=== PATIENT | male | born 1955 | race Caucasian/White ===

== ENCOUNTER 2023-11-06 10:13 | Emergency (ER) | payer BC, SELFPAY ==
[2023-11-06 10:20] VITALS: BP 186/96; PULSE 76; RESP 16; TEMP 36.6; O2SAT 99; BMI 25.5
--- NOTE | 2023-11-06 10:24 | DI.RAD.S_ITS ---
PROCEDURE: XR FINGER LT MIN 2V INDICATIONS: table saw laceration TECHNIQUE: AP hand, 2 views of the 1st finger(s) acquired. COMPARISON: None. FINDINGS: Bones: Cortical irregularity involving 1st distal phalangeal tuft is noted. No other fracture or dislocation.. No suspicious bony lesions. Soft tissues: Soft tissue laceration over volar aspect of 1st distal phalanx is noted with small amount of subcutaneous emphysema. No radiopaque foreign body is seen. No suspicious soft tissue calcifications. IMPRESSION: Laceration over volar aspect of left thumb. No radiopaque foreign bodies. Suggestion of subtle nondisplaced or minimally displaced fracture involving 1st distal phalangeal tuft. Dictated by: Steffen Hughes M.D. on 11/06/2023 at 11:08 Approved by: Steffen Hughes M.D. on 11/06/2023 at 11:11
[2023-11-06] MEDS: LIDOCAINE 1% (PF) 5 ML 10 ML INJ (12:18)
[2023-11-06] MEDS: TET,DIPH,PERTUSS(ACELL),VAC/PF 0.5 ML SYRINGE IM (13:52)
--- NOTE | 2023-11-06 14:34 | ED.WOUNDLAC ---
HPI - Wound/Laceration <Ruben Dewey PA-C - Last Filed: 11/06/23 14:41> General Chief Complaint: Wound/Laceration Stated Complaint: cut thumb left hand Time Seen by Provider: 11/06/23 11:31 Source: patient Mode of arrival: Ambulatory History of Present Illness HPI narrative: 68-year-old male with past medical history hypertension presents to the ED status post a finger injury sustained just prior to arrival. Patient states that he was working on a home improvement project with a table saw when he accidentally injured his left thumb. Patient denies numbness, tingling, weakness. Bleeding is controlled with pressure. Patient endorses full range of motion. Tetanus status unknown. Related Data Previous Rx's Medication Instructions Recorded cephalexin 500 mg capsule 500 mg PO QID 5 days #20 caps 11/06/23 lisinopril 10 1 tab PO DAILY 21 days #21 tabs 11/06/23 mg-hydrochlorothiazide 12.5 mg tablet lisinopril 5 mg tablet 5 mg PO DAILY 3 weeks #21 tabs 11/06/23 Allergies Allergy/AdvReac Type Severity Reaction Status Date / Time No Known Drug Allergies Allergy Verified 11/06/23 10:23 Review of Systems <Ruben Dewey PA-C - Last Filed: 11/06/23 14:41> Constitutional Constitutional: Denies chills, Denies fatigue, Denies fever(s), Denies frequent falls, Denies lethargy and Denies weakness Eyes Eyes: Denies change in vision, Denies eye discharge, Denies irritation and Denies loss of vision ENT Ears, Nose, Mouth, and Throat: Denies change in voice, Denies dizziness, Denies neck pain, Denies sore throat and Denies throat swelling Cardiovascular Cardiovascular: Denies chest pain, Denies irregular heart rhythm, Denies lightheadedness, Denies palpitations, Denies dyspnea, Denies dyspnea on exertion and Denies orthopnea Respiratory Respiratory: Denies cough, Denies dyspnea, Denies dyspnea on exertion and Denies wheezing Gastrointestinal Gastrointestinal: Denies abdominal pain, Denies change in bowel habits, Denies diarrhea, Denies nausea and Denies vomiting Musculoskeletal Musculoskeletal: Denies neck pain and Denies numbness Integumentary/Breasts Skin/Breast: Denies pruritus, Denies erythema, Denies rash and Reports wounds Neurologic Neurologic: Denies behavioral changes, Denies confusion, Denies dizziness, Denies frequent falls, Denies loss of vision, Denies numbness and Denies weakness Psychiatric Psychiatric: Denies anxiety, Denies behavioral changes, Denies confusion, Denies depression, Denies homicidal ideation and Denies suicidal ideation Endocrine Endocrine: Denies fatigue, Denies flushing and Denies palpitations Hematologic/Lymphatic Hematologic/Lymphatic: Denies easy bruising Allergic/Immunologic Allergic/Immunologic: Denies urticaria, Denies throat swelling and Denies wheezing Patient History <Ruben Dewey PA-C - Last Filed: 11/06/23 14:41> Social History Smoking Status: Never smoker Smoking Status: Never smoker Substance Use Type: does not use Exam <Ruben Dewey PA-C - Last Filed: 11/06/23 14:41> Narrative Exam Narrative: Const General:?cooperative, healthy appearing and comfortable [facility] Head:?normal to inspection Ears:?hearing grossly normal bilaterally Nose:?external nose normal Face and sinus:?normal facial exam and sinuses nontender Mouth:?oral mucosae normal Throat:?posterior oropharynx normal Eyes General:?appearance normal, both eyes and all related structures Neck Neck:?normal visual inspection and no lymphadenopathy noted Resp Effort & Inspection:?normal respiratory effort Auscultation:?clear to auscultation bilaterally Cardio Rate:?regular rate Rhythm:?regular rhythm Integumentary There is a 2 cm laceration to the volar aspect of the left thumb. Bleeding is controlled with pressure. There is full range of motion. Strength and sensation is intact. Patient is neurovascularly intact. Neuro General:?patient alert, patient awake and patient oriented x3 Initial Vital Signs Initial Vital Signs: Vital Signs Temperature 98 F 11/06/23 10:20 Pulse Rate 76 11/06/23 10:20 Respiratory Rate 16 11/06/23 10:20 Blood Pressure 186/96 H 11/06/23 10:20 Pulse Oximetry 99 11/06/23 10:20 Oxygen Delivery Method Room Air 11/06/23 10:20 <Tonie Alejo MD - Last Filed: 11/06/23 15:49> Initial Vital Signs Initial Vital Signs: Vital Signs Temperature 98 F 11/06/23 10:20 Pulse Rate 76 11/06/23 10:20 Respiratory Rate 16 11/06/23 10:20 Blood Pressure 186/96 H 11/06/23 10:20 Pulse Oximetry 99 11/06/23 10:20 Oxygen Delivery Method Room Air 11/06/23 10:20 Procedures <Ruben Dewey PA-C - Last Filed: 11/06/23 14:41> Laceration Repair Laceration 1: Site: hand Side (If applicable): left Size (cm): 2 Description: irregular Depth: simple, single layer Local Anesthetic: lidocaine 1% Amount of anesthesia used (mL): 4 Pre-repair: wound explored, irrigated extensively and deep structures intact Skin layer closed with: nylon Skin layer suture size: 5-0 Number of sutures: 5 Technique: simple, interrupted Course <Ruben Dewey PA-C - Last Filed: 11/06/23 14:41> Orders Ordered: ED Orders 11/06/23 10:24 XR finger LT min 2V Stat Discontinued Medications Diphtheria/Tetanus/Acell Pertussis (Tet,Diph,Pertuss(Acell),Vac/Pf 0.5 Ml Syringe) 0.5 ml IM .ONCE ONE Stop: 11/06/23 13:13 Last Admin: 11/06/23 13:52 Dose: 0.5 ml Documented By: JAME Lidocaine HCl (Lidocaine 1% (Pf) 5 Ml) 10 ml INJ NOW ONE Stop: 11/06/23 12:08 Last Admin: 11/06/23 12:18 Dose: 10 ml Documented By: MOHIT Vital Signs Vital signs: Vital Signs - 8 hr 11/06/23 10:20 11/06/23 14:40 Temperature 98 F Pulse Rate 76 60 Respiratory Rate 16 18 Blood Pressure 186/96 H 157/94 H Pulse Oximetry 99 100 Oxygen Delivery Method Room Air Room Air <Tonie Alejo MD - Last Filed: 11/06/23 15:49> Orders Ordered: ED Orders 11/06/23 10:24 XR finger LT min 2V Stat Discontinued Medications Diphtheria/Tetanus/Acell Pertussis (Tet,Diph,Pertuss(Acell),Vac/Pf 0.5 Ml Syringe) 0.5 ml IM .ONCE ONE Stop: 11/06/23 13:13 Last Admin: 11/06/23 13:52 Dose: 0.5 ml Documented By: RLS Lidocaine HCl (Lidocaine 1% (Pf) 5 Ml) 10 ml INJ NOW ONE Stop: 11/06/23 12:08 Last Admin: 11/06/23 12:18 Dose: 10 ml Documented By: MOHIT Vital Signs Vital signs: Vital Signs - 8 hr 11/06/23 10:20 11/06/23 14:40 Temperature 98 F Pulse Rate 76 60 Respiratory Rate 16 18 Blood Pressure 186/96 H 157/94 H Pulse Oximetry 99 100 Oxygen Delivery Method Room Air Room Air MDM - Wound/Laceration <Ruben Dewey PA-C - Last Filed: 11/06/23 14:41> MDM Narrative Medical decision making narrative: 68-year-old male with past medical history hypertension presents to the ED status post a finger injury sustained just prior to arrival. Concern for laceration versus fracture/dislocation versus other. X-ray was obtained which shows a laceration over the volar aspect of the left thumb. No radiopaque foreign bodies. Suggestion of subtle nondisplaced or minimally displaced fracture involving the 1st distal phalangeal tuft. Laceration was repaired with 5 sutures. Sutures will need to come out in 7-10 days. Tetanus was updated. Patient prescribed antibiotics. Also prescribed blood pressure medication the patient normally takes since he will not be able to go back home to the [place] for the next 2 weeks. Recommend ortho follow-up. ED return precautions discussed with patient. Patient verbalized understanding. Medical records reviewed: Yes Discharge Plan Departure Patient Disposition: Home Clinical Impression: Laceration Thumb fracture Qualifiers: Encounter type: initial encounter Fracture type: open Phalanx: distal Fracture alignment: nondisplaced Laterality: left Qualified Code(s): S62.525B - Nondisplaced fracture of distal phalanx of left thumb, initial encounter for open fracture Instructions: DI for Laceration Repair, DI for Finger Fracture Activity Restrictions/Additional Instructions: You were evaluated in the ED today for a finger injury. It appears that you have a laceration to the skin as well as a nondisplaced fracture to the tip of the thumb. Your wound was cleaned well and repaired with 5 sutures which will need to be removed in 7-10 days. You may return to the ED or go to a walk-in clinic or PCP for suture removal. Please watch for signs of infection including worsening redness, pain, swelling, discharge, warmth. Return to the ED if you note any signs of infection. You are being prescribed antibiotics since you also have a fracture to the tip of the thumb. You may follow-up with an ortho specialist to monitor proper bone healing. Return to the ED if you note signs of infection or worsening symptoms. Prescriptions: New cephalexin 500 mg capsule 500 mg PO QID 5 Days Qty: 20 0RF lisinopril 5 mg tablet 5 mg PO DAILY 21 Days Qty: 21 0RF lisinopril-hydrochlorothiazide 10-12.5 mg tablet 1 tab PO DAILY 21 Days Qty: 21 0RF Stand Alone Forms: Patient Portal/API ED Sign-out <Tonie Alejo MD - Last Filed: 11/06/23 15:49> [facility] Att[facility]: I was immediately available in the department for consultation throughout this patient's visit. Tonie Alejo MD
[2023-11-06 14:40] VITALS: BP 157/94; PULSE 60; RESP 18; O2SAT 100
== END 2023-11-06 14:41 | disposition home or self-care (01) ==
PROVIDERS: Emergency Provider Student in an Organized Health Care Education/Training Program
DX: S62.525A Nondisplaced fracture of distal phalanx of left thumb, initial encounter for closed fracture (principal); S61.012A Laceration without foreign body of left thumb without damage to nail, initial encounter; W27.0XXA Contact with workbench tool, initial encounter; Z23 Encounter for immunization
CPT/HCPCS: 12001; 73140; 90471; 99283; 99284; 90715